=== PATIENT | male | born 1990 | race Caucasian/White ===

== ENCOUNTER 2017-08-06 21:14 | Emergency (ER) | payer BC, OTHER ==
[2017-08-06] MEDS ORDERED: Lidocaine 1% 10 ML MDV INJECT ONE (22:00)
[2017-08-06] MEDS ORDERED: Diphtheria,Pertussis(Acell),Tetanus Vaccine 0.5 ML SDV IM ONE (22:00)
--- NOTE | 2017-08-06 22:14 | EDM.PDOC ---
ED HPI GENERAL MEDICAL PROBLEM - General Chief Complaint: Laceration Stated Complaint: HIT IN FACE W/HOCKEY PUCK Time Seen by Provider: 08/06/17 21:49 Source of Information: Reports: Patient History Limitations: Reports: No Limitations - History of Present Illness INITIAL COMMENTS - FREE TEXT/NARRATIVE: The patient was playing adult league hockey tonight and he and another player ran into each other. The other player was wearing a face mask on his helmet and the patient was not. He has a laceration to the right upper lip and inner right lip and he has a fracture of the right upper medial incisor. He had no LOC and he has no other injuries. He thinks it has been almost 10 years when he had his last tetanus. Onset: Sudden Duration: Minutes: Location: Reports: Face Quality: Reports: Sharp Severity: Severe Improves with: Reports: None Worsens with: Reports: None Context: Reports: Trauma (He lolita to another skater when playing hockey) Associated Symptoms: Reports: No Other Symptoms Face Pain Score (Numeric/FACES): 6 - Related Data Allergies Allergy/AdvReac Type Severity Reaction Status Date / Time amoxicillin Allergy Hives Verified 08/06/17 21:23 Past Medical History - Past Health History Medical/Surgical History: Denies Medical/Surgical History - Past Surgical History GI Surgical History: Reports: Hernia, Inguinal Social & Family History - Tobacco Use Smoking Status *Q: Never Smoker - Caffeine Use Caffeine Use: Reports: Coffee, Energy Drinks, Soda - Recreational Drug Use Recreational Drug Use: No ED ROS GENERAL - Review of Systems Review Of Systems: See Below Constitutional: Reports: No Symptoms HEENT: Reports: Dental Pain, Other (Laceration to the upper, inner and outer right lip) Respiratory: Reports: No Symptoms Cardiovascular: Reports: No Symptoms Endocrine: Reports: No Symptoms GI/Abdominal: Reports: No Symptoms : Reports: No Symptoms Musculoskeletal: Reports: No Symptoms Skin: Reports: No Symptoms ED EXAM, SKIN/RASH Exam: See Below Exam Limited By: No Limitations General Appearance: Alert, No Apparent Distress Ears: Normal External Exam Nose: Other (Abrasion to the nose) Throat/Mouth: Other (2cm laceration to the upper, right, outer lip. The laceration extends into the vermilion border. 1cm laceration to the upper inner lip. He has a fracture of the upper latera incisor. There is a superficial laceration to the left upper lip and inner lip.) Neck: Normal Inspection Respiratory/Chest: No Respiratory Distress Neurological: Alert, Oriented, No Motor/Sensory Deficits ED SKIN PROCEDURES - Laceration/Wound Repair Right Face Lac/Wound length In cm: 2 Appearance: Subcutaneous, Linear Anesthetic Type: Local Local Anesthesia - Lidocaine (Xylocaine): 1% Plain Exploration/Debridement/Repair: Wound Explored, In a Bloodless Field, Explored to Base Closed with: Sutures Suture Size: 4-0 # of Sutures: 4 Suture Type: Other (Vicril) - Additional/Other Procedure(s) Other (Free Text) Procedure(s): 1cm laceration to the right inner lip. The wound was cleaned and I explored the wound in a bloodless field. I anaesthetized with 1% lidocaine. I then sutured the wound with 1 suture of 4-0 vicryl. Course - Vital Signs Last Recorded V/S: Last Vital Signs Temp 98.1 F 08/06/17 21:25 Pulse 88 08/06/17 21:25 Resp 20 08/06/17 21:25 BP 139/96 H 08/06/17 21:25 Pulse Ox 97 08/06/17 21:25 - Orders/Labs/Meds Orders: Active Orders 24 hr Category Date Time Status Vaccines to be Administered [RC] PER UNIT ROUTINE Care 08/06/17 22:00 Active Meds: Medications Discontinued Medications Generic Name Dose Route Start Last Admin Trade Name Freq PRN Reason Stop Dose Admin Diphtheria/Tetanus/Acell Pertussis 0.5 ml 08/06/17 22:00 08/06/17 22:12 Adacel IM 08/06/17 22:01 0.5 ml .ONCE ONE Administration Lidocaine HCl 10 ml 08/06/17 22:00 08/06/17 22:12 Xylocaine 1% INJECT 08/06/17 22:01 10 ml ONETIME ONE Administration - Re-Assessments/Exams Free Text/Narrative Re-Assessment/Exam: 08/06/17 22:36 I sutured his wounds and he also has a fractured tooth. I will refer him to a dentist for that. Departure - Departure Time of Disposition: 22:40 Disposition: Home, Self-Care 01 Condition: Good Clinical Impression: Laceration of lip Qualifiers: Encounter type: initial encounter Qualified Code(s): S01.511A - Laceration without foreign body of lip, initial encounter Fractured tooth due to trauma without complication Qualifiers: Encounter type: initial encounter Fracture type: closed Qualified Code(s): S02.5XXA - Fracture of tooth (traumatic), initial encounter for closed fracture - Discharge Information Referrals: PCP,Unknown [Primary Care Provider] - Forms: ED Department Discharge Additional Instructions: Rinse the outer laceration with warm soapy water 2 times per day and apply antibiotics after. Rinse your mouth with water after eating or drinking anything with sugar. [place] your teeth 2 times per day. Call your dentist tomorrow. The sutures are absorbable and they should fall out in about a week. If they do not please have them removed. Look for any signs of infection such as redness, swelling, pain or drainage. If you see any of these signs or symptoms please follow up. You may need oral antibiotics. - My Orders Last 24 Hours: My Active Orders 08/06/17 22:00 Vaccines to be Administered [RC] PER UNIT ROUTINE - Assessment/Plan Last 24 Hours: My Active Orders 08/06/17 22:00 Vaccines to be Administered [RC] PER UNIT ROUTINE
== END 2017-08-06 22:49 | disposition home or self-care (01) ==
LOC: MERGE 21:14 → JD.ED 21:14
DX: S02.5XXA Fracture of tooth (traumatic), initial encounter for closed fracture (principal); S01.511A Laceration without foreign body of lip, initial encounter; Z88.1 Allergy status to other antibiotic agents; Z23 Encounter for immunization; W51.XXXA Accidental striking against or bumped into by another person, initial encounter; Y93.22 Activity, ice hockey
CPT/HCPCS: 12011; 12013; 90471; 90715; 99282-25; 99283-25